=== PATIENT | female | born 1950 | race Caucasian/White ===

== ENCOUNTER → 2017-03-09 | Outpatient (CLI) | payer MEDICARE, OTHER, BC ==
[~2017-03-09] MED LIST: AFRIN15 M1 NS; AVAPRO DPS150 MG PO; AVAPRO150 MG PO; BUSPIRONE HCL10 MG PO; CARAFATE DPS1 GM PO; COUMADIN2.5 MG PO; CYMBALTA DPS60 MG PO; CYMBALTA30 MG PO; FISH OIL300 MG PO; GLUCOPHAGE-DPS500 MG PO; GLUCOTROL DPS5 MG PO; KLOR-CON M2020 MEQ PO; LASIX DPS40 MG PO; LASIX40 MG PO; LOVENOX80 MG/0.8 SQ; METFORMIN HCL1000 MG PO; METOPROLOL TART25 MG PO; NORCO 5-325 TA1 EACH PO; NORVASC2.5 MG PO; POTASSIUM CHLO20 ME2 PO; PRAVACHOL20 MG PO; PRAVASTATIN SOD20 MG PO; PRILOSEC DPS20 MG PO; SYNTHROID DPS0.05 MG PO; TESSALON PERLE100 MG PO; TYLENOL DPS325 MG PO; WARFARIN SODIU7.5 MG PO; WARFARIN SODIUM5 MG PO; ZYRTEC DPS10 MG PO; ZYRTEC10 M3 PO
== END | disposition home or self-care (01) ==
LOC: NUE 13:57
DX: E11.9 Type 2 diabetes mellitus without complications (principal); Z71.3 Dietary counseling and surveillance
CPT/HCPCS: 258